=== PATIENT | female | born 1965 | race Caucasian/White ===

== ENCOUNTER 2017-09-12 13:37 | Day surgery (SDC) | payer OTHER ==
[~2017-09-12 13:37] MED LIST: AMBIEN10 MG PO; ASPIR 8181 MG PO; BUSPIRONE HCL10 MG PO; CLONAZEPAM0.5 MG PO; LIPITOR20 MG PO; SYNTHROID50 MCG PO; ZANTAC300 MG PO; ZOLOFT20 MG/1 ML PO
[2017-09-12] MEDS ORDERED: PERCOCET 5-3251 EACH PO (18:02)
[2017-09-12] MEDS ORDERED: KEFLEX500 MG PO (18:02)
== END 2017-09-12 20:20 | disposition home or self-care (01) ==
LOC: CIR.AMB 13:37
DX: G57.52 Tarsal tunnel syndrome, left lower limb (principal); M72.2 Plantar fascial fibromatosis